=== PATIENT | male | born 1955 | race Caucasian/White ===

== ENCOUNTER 2021-01-13 22:36 | Inpatient (IN) | payer OTHER, SELFPAY ==
[2021-01-13 23:16] VITALS: BMI 30.9
[2021-01-14 00:27] VITALS: BMI 24.5
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
[2021-01-14] MEDS: traZODone HCL 50 MG TABLET PO (02:20)
[2021-01-14] MEDS: hydrOXYzine HCL 25 MG TABLET PO (02:20)
[2021-01-14 06:37] LABS: Glucose, Whole Blood 152 mg/dL (60-115)
[2021-01-14 08:30] LABS: MANUAL DIFF FLAG NO
[2021-01-14 08:33] LABS: Basophils Absolute Auto 0.1 X10*3/uL (0.0-0.2); Basophils Percent Auto 1.4 % (0-2); Eosinophils Absolute Auto 0.7 X10*3/uL (0.0-0.4); Eosinophils Percent Auto 8.6 % (0-4); Hemoglobin 12.4 g/dl (14.0-18.0); Imm Gran Abs Auto 0.02 X10*3/uL (0.00-0.03); Imm Gran Pct Auto 0.2 % (0.0-0.4); Lymphocytes Percent Auto 23.5 % (20-40); Mean Platelet Volume 9.8 fL (9.4-12.4); Monocytes Absolute Auto 0.7 X10*3/uL (0.1-1.2); Neutrophils Absolute Auto 4.9 X10*3/uL (2.0-8.3); Neutrophils Percent Auto 58.3 % (45-73); Platelet Count 402 X10*3/uL (160-400); Red Blood Count 5.63 X10*6/uL (4.60-5.80); Red Cell Distribution Width 16.8 % (11.0-16.0); White Blood Count 8.4 X10*3/uL (4.8-10.8)
[2021-01-14 08:49] LABS: Anion Gap 14 (12-20); Blood Urea Nitrogen 18 mg/dL (9-16); Calcium 9.9 mg/dL (8.4-10.2); Carbon Dioxide 27 mmol/L (22-29); Chloride 99 mmol/L (96-108); Creatinine Clr Calc Pharmacy 65.3; Estimated Glomerular Filt Rate > 60; Glucose Random 207 mg/dL (60-115); Potassium 4.3 mmol/L (3.3-5.1); Sodium 136 mmol/L (135-145)
[2021-01-14] MEDS: metFORMIN HCl 1,000 MG TABLET 1000 MG PO ×2 (08:55→16:55)
[2021-01-14] MEDS: Insulin Glargine,Hum.rec.anlog 100 UNIT/ML 10 ML VIAL 26 UNIT SUBCUT (08:59)
[2021-01-14 09:34] LABS: Alanine Aminotransferase 12 U/L (0-40); Albumin Level 4.1 g/dL (3.5-5.0); Alkaline Phosphatase 131 U/L (39-117); Anion Gap 14 (12-20); Aspartate Amino Transferase 22 U/L (5-37); Bilirubin Total 0.4 mg/dL (0.0-1.0); Blood Urea Nitrogen 18 mg/dL (9-16); Calcium 9.7 mg/dL (8.4-10.2); Carbon Dioxide 27 mmol/L (22-29); Chloride 100 mmol/L (96-108); Creatinine Clr Calc Pharmacy 67.3; Estimated Glomerular Filt Rate > 60; Glucose Fasting 207 mg/dL (60-99); Sodium 137 mmol/L (135-145); Total Protein 6.5 g/dL (6.5-8.0)
[2021-01-14 09:35] LABS: Alanine Aminotransferase 13 U/L (0-40); Albumin Level 4.2 g/dL (3.5-5.0); Alkaline Phosphatase 134 U/L (39-117); Aspartate Amino Transferase 22 U/L (5-37); Bilirubin Direct 0.2 mg/dL (0.0-0.5); Bilirubin Total 0.4 mg/dL (0.0-1.0); Total Protein 6.7 g/dL (6.5-8.0)
[2021-01-14 10:00] VITALS: BP 96/55; PULSE 100; RESP 16; TEMP 36.3; O2SAT 100
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
[2021-01-14 17:57] LABS: Glucose, Whole Blood 247 mg/dL (60-115)
[2021-01-14 18:00] VITALS: BP 120/71; PULSE 95; RESP 18; TEMP 36.7; O2SAT 98
[2021-01-14] MEDS: Insulin Lispro 100 UNIT/ML 3 ML VIAL SUBCUT (19:56)
[2021-01-14] MEDS: Mineral Oil/Petrolatum,White 106 GM Tube 1 APPL TOPICAL (20:08)
[2021-01-14] MEDS: QUEtiapine Fumarate 25 MG TABLET PO (20:10)
[2021-01-15 05:52] LABS: Glucose, Whole Blood 67 mg/dL (60-115)
[2021-01-15 06:12] LABS: Glucose, Whole Blood 127 mg/dL (60-115)
--- NOTE | 2021-01-15 09:00 | ECG_ITS ---
Test Reason : QTC CHECK Blood Pressure : / mmHG Vent. Rate : 090 BPM Atrial Rate : 090 BPM P-R Int : 146 ms QRS Dur : 082 ms QT Int : 364 ms P-R-T Axes : 064 055 054 degrees QTc Int : 445 ms Normal sinus rhythm Nonspecific T wave abnormality Abnormal ECG No previous ECGs available Referred By: Dia Kessler Electronically Signed By:GLENN WARREN
[2021-01-15 09:06] LABS: Estimated Average Glucose 329 mg/dL; Hemoglobin A1c % 13.1 %
[2021-01-15 09:19] LABS: Cholesterol 77 mg/dL; HDL Cholesterol 35 mg/dL; LDL Cholesterol Calculated 30 mg/dl; Triglycerides 64 mg/dL
[2021-01-15] MEDS: metFORMIN HCl 1,000 MG TABLET 1000 MG PO ×2 (09:20→17:23)
[2021-01-15] MEDS: Multivitamin TABLET 1 TAB PO (09:20)
[2021-01-15] MEDS: Insulin Glargine,Hum.rec.anlog 100 UNIT/ML 10 ML VIAL 26 UNIT SUBCUT (09:25)
[2021-01-15 09:29] VITALS: BP 143/86; PULSE 94; RESP 18; TEMP 36.4; O2SAT 97; BMI 25.7
[2021-01-15 09:30] LABS: Thyroid Stimulating Hormone 1.97 uIU/mL (0.32-4.0)
[2021-01-15 09:57] LABS: Folate 16.5 ng/mL (> or = 4.0); Vitamin B12 624 pg/mL (200-900)
[2021-01-15] MEDS: Gabapentin 300 MG CAPSULE PO ×2 (11:22→21:40)
[2021-01-15 11:33] LABS: Glucose, Whole Blood 271 mg/dL (60-115)
[2021-01-15] MEDS: Insulin Lispro 100 UNIT/ML 3 ML VIAL SUBCUT (11:56)
[2021-01-15] MEDS: Capsaicin 0.025% Cream 60 GM TUBE 1 APPL TOPICAL (12:16)
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
[2021-01-15 17:14] LABS: Glucose, Whole Blood 60 mg/dL (60-115)
[2021-01-15 18:00] VITALS: BP 119/78; PULSE 84; RESP 16; TEMP 36.1; O2SAT 99
[2021-01-15 21:03] LABS: Glucose, Whole Blood 75 mg/dL (60-115)
[2021-01-15] MEDS: QUEtiapine Fumarate 50 MG TABLET PO (21:40)
--- NOTE | 2021-01-15 22:31 | PC.NURSE ---
Pt upset upon arrival on shift. Pt upset about medications. This senior grant writer spoke to pts nurse and mentioned that it is best the chain dyer be called to explain the situation. Dr. Colton May came on to the unit to do a history and physical on the pt. Yadira had a shell molding roller blast operator with her. The chain dyer was able to explain all the pts medications and pt concerns. Pt was still upset and frustrated. Pt was made aware that he could speak with the human rights officer and put in a complaint for any concerns.
[2021-01-16] MEDS: Capsaicin 0.025% Cream 60 GM TUBE 1 APPL TOPICAL (03:47)
--- NOTE | 2021-01-16 05:18 | P.HPHOSP_ITS ---
History of Present Illness Date of Service: 01/15/21 Chief Complaint: Admission H&P 65-year-old male with past medical history of opioid use disorder as well as schizoaffective disorder admitted to [facility] for bipolar and schizoaffective disorder. We are asked to see this patient for admission H&P I interviewed the patient with the help of science interpreter. Patient at this time denies any chest pain, no abdominal pain, no nausea or vomiting, no diarrhea or constipation, no urinary symptoms and no lower extremi ty edema. Patient reports that he has history of chronic neuropathy, he is upset that the nurse did not give him his neuropathy ointment as was scheduled for him outpatient which he was receiving q.i.d. but he was getting it t.i.d. at the [facility] and the of the exiting to him, patient kept talking nonstop, has flight of ideas, very talkative and very hard to redirect. [facility] Medical History (Updated 01/14/21 @ 17:35 by Dia Kessler, RJ) Opioid use disorder Schizoaffective disorder, bipolar type Social History Household Members: Spouse Housing: Apartment Do you presently have visiting nurse or other home services: Yes Patient Tobacco Use Status: Never used Tobacco Currently Displaying Signs/Symptoms of Drug Intoxication Withdrawal: No Advance Directives: No Advance Directives Information Provided: Yes Do you have thoughts of harming others: None Do you have a plan to hurt others: No Plan service: Yes (Patient reports being in [employer], but service unable to be confirmed.) Sexual orientation: Straight/Heterosexual Meds Allergies Allergy/AdvReac Type Severity Reaction Status Date / Time Unable to Assess Allergy Verified 01/13/21 23:19 Active Medications: Current Medications Acetaminophen (Acetaminophen 325 Mg Tablet) 650 mg PO Q6H PRN PRN Reason: Headache/Pain Mild Scale (1-3) Al Hydroxide/Mg Hydroxide (Magnesium Hydrox/Alum Hydrox 30 Ml Oral.Susp) 30 ml PO Q6H PRN PRN Reason: Heartburn/Nausea Capsaicin (Capsaicin 0.025% Cream 60 Gm Tube) 1 appl TOPICAL QID PRN PRN Reason: neuropathic pain Last Admin: 01/16/21 03:47 Dose: 1 appl Documented by: Dextrose (Dextrose 50 % 25 Gm/50 Ml Vial) 25 gm IVPUSH Q15M PRN; Protocol PRN Reason: per Hypoglycemia Standing Ord. Gabapentin (Gabapentin 300 Mg Capsule) 300 mg PO BID [facility] Last Admin: 01/15/21 21:40 Dose: 300 mg Documented by: Glucose (Glucose Gel 15 Gm Gel..Gram.) 15 gm PO Q15M PRN; Protocol PRN Reason: per Hypoglycemia Standing Ord. Hydroxyzine HCl (Hydroxyzine Hcl 25 Mg Tablet) 25 mg PO BEDTIME PRN PRN Reason: Anxiety Last Admin: 01/14/21 02:20 Dose: 25 mg Documented by: Insulin Glargine (Insulin Glargine,Hum.Rec.Anlog 100 Unit/Ml 10 Ml Vial) 26 unit SUBCUT DAILY [facility] Last Admin: 01/15/21 09:25 Dose: 1 unit Documented by: Insulin Human Lispro (Insulin Lispro 100 Unit/Ml 3 Ml Vial) 0 unit SUBCUT QIDACHS [facility]; Protocol Last Admin: 01/15/21 21:19 Dose: Not Given Documented by: Lidocaine (Lidocaine 4 % Patch Adh..Patch) 2 patch TRANSDERMA DAILY PRN; Protocol PRN Reason: pain Magnesium Hydroxide (Milk Of Magnesia 30 Ml Oral.Susp) 30 ml PO DAILY PRN PRN Reason: Constipation Metformin HCl (Metformin Hcl 1,000 Mg Tablet) 1,000 mg PO BIDWM [facility] Last Admin: 01/15/21 17:23 Dose: 1,000 mg Documented by: Multi-Ingred Cream/Lotion/Oil/Oint (Mineral Oil/Petrolatum,White 106 Gm Tube) 1 appl TOPICAL TID [facility] Last Admin: 01/15/21 21:56 Dose: Not Given Documented by: Multivitamins/Vitamin C (Multivitamin Tablet) 1 tab PO DAILY [facility] Last Admin: 01/15/21 09:20 Dose: 1 tab Documented by: Quetiapine Fumarate (Quetiapine Fumarate 25 Mg Tablet) 25 mg PO BID PRN PRN Reason: Psychosis Quetiapine Fumarate (Quetiapine Fumarate 50 Mg Tablet) 50 mg PO BEDTIME [facility] Last Admin: 01/15/21 21:40 Dose: 50 mg Documented by: Trazodone HCl (Trazodone Hcl 50 Mg Tablet) 50 mg PO BEDTIME PRN PRN Reason: Insomnia Last Admin: 01/14/21 02:20 Dose: 50 mg Documented by: Trolamine Salicylate/Aloe Vera (Trolamine Salicylate 10%/Aloe Cream 35.4 Gm) 1 appl TOPICAL QID PRN; Protocol PRN Reason: pain,neck,back Last Admin: 01/15/21 06:17 Dose: 1 appl Documented by: Physical Exam Vital Signs and Narrative: Vital Signs: Last Vital Signs Temp 97 F 01/15/21 18:00 Pulse 84 01/15/21 18:00 Resp 16 01/15/21 18:00 BP 119/78 01/15/21 18:00 Pulse Ox 99 01/15/21 18:00 Body Mass Index 25.7 Results Labs CBC and Chem 7: 01/14/21 07:55 01/14/21 07:55 Labs: Laboratory Results - last 24 hr 01/15/21 01/15/21 01/15/21 01:32 06:09 08:01 POC Glucose 67 127 H Estimat Average Glucose Hemoglobin A1c % Triglycerides 64 Cholesterol 77 LDL Cholesterol, Calc 30 HDL Cholesterol 35 Vitamin B12 Folate TSH 01/15/21 01/15/21 01/15/21 08:01 08:01 08:01 POC Glucose Estimat Average Glucose 329 Hemoglobin A1c % 13.1 Triglycerides Cholesterol LDL Cholesterol, Calc HDL Cholesterol Vitamin B12 624 Folate 16.5 TSH 1.97 01/15/21 01/15/21 01/15/21 11:27 17:11 20:57 POC Glucose 271 H 60 75 Estimat Average Glucose Hemoglobin A1c % Triglycerides Cholesterol LDL Cholesterol, Calc HDL Cholesterol Vitamin B12 Folate TSH
--- NOTE | 2021-01-16 06:48 | HO.HSGERICON ---
History of Present Illness Data of Consult Service Date: 01/16/21 Primary Care Provider: Unknown Physician HPI 65-year-old male with past medical history of opioid use disorder as well as schizoaffective disorder admitted to [facility] for bipolar and schizoaffective disorder. We are asked to see this patient for admission H&P I interviewed the patient with the help of scrap iron loader. Patient at this time denies any chest pain, no abdominal pain, no nausea or vomiting, no diarrhea or constipation, no urinary symptoms and no lower extremity edema. Patient reports that he has history of chronic neuropathy, he is upset that the nurse did not give him his neuropathy ointment as was scheduled for him outpatient which he was receiving q.i.d. but he was getting it t.i.d. at the [facility] and the of the exiting to him, patient kept talking nonstop, has flight of ideas, very talkative and very hard to redirect. Vitals reviewed, remarkable Labs reviewed all unremarkable Review of Systems Review of Systems: Yes all other systems are reviewed and are negative [facility] Medical History Opioid use disorder Schizoaffective disorder, bipolar type Pertinent family history: No pertinent family history Surgical History (Updated 01/16/21 @ 06:48 by Benita May MD) No significant past surgical history Social History Household Members: Spouse Housing: Apartment Do you presently have visiting nurse or other home services: Yes Patient Tobacco Use Status: Never used Tobacco Currently Displaying Signs/Symptoms of Drug Intoxication Withdrawal: No Advance Directives: No Advance Directives Information Provided: Yes Do you have thoughts of harming others: None Do you have a plan to hurt others: No Plan service: Yes (Patient reports being in [employer], but service unable to be confirmed.) Sexual orientation: Straight/Heterosexual Meds Allergies Allergy/AdvReac Type Severity Reaction Status Date / Time Unable to Assess Allergy Verified 01/13/21 23:19 Active Medications: Current Medications Acetaminophen (Acetaminophen 325 Mg Tablet) 650 mg PO Q6H PRN PRN Reason: Headache/Pain Mild Scale (1-3) Al Hydroxide/Mg Hydroxide (Magnesium Hydrox/Alum Hydrox 30 Ml Oral.Susp) 30 ml PO Q6H PRN PRN Reason: Heartburn/Nausea Capsaicin (Capsaicin 0.025% Cream 60 Gm Tube) 1 appl TOPICAL QID PRN PRN Reason: neuropathic pain Last Admin: 01/16/21 03:47 Dose: 1 appl Documented by: Dextrose (Dextrose 50 % 25 Gm/50 Ml Vial) 25 gm IVPUSH Q15M PRN; Protocol PRN Reason: per Hypoglycemia Standing Ord. Gabapentin (Gabapentin 300 Mg Capsule) 300 mg PO BID [facility] Last Admin: 01/15/21 21:40 Dose: 300 mg Documented by: Glucose (Glucose Gel 15 Gm Gel..Gram.) 15 gm PO Q15M PRN; Protocol PRN Reason: per Hypoglycemia Standing Ord. Hydroxyzine HCl (Hydroxyzine Hcl 25 Mg Tablet) 25 mg PO BEDTIME PRN PRN Reason: Anxiety Last Admin: 01/14/21 02:20 Dose: 25 mg Documented by: Insulin Glargine (Insulin Glargine,Hum.Rec.Anlog 100 Unit/Ml 10 Ml Vial) 26 unit SUBCUT DAILY [facility] Last Admin: 01/15/21 09:25 Dose: 1 unit Documented by: Insulin Human Lispro (Insulin Lispro 100 Unit/Ml 3 Ml Vial) 0 unit SUBCUT QIDACHS [facility]; Protocol Last Admin: 01/15/21 21:19 Dose: Not Given Documented by: Lidocaine (Lidocaine 4 % Patch Adh..Patch) 2 patch TRANSDERMA DAILY PRN; Protocol PRN Reason: pain Magnesium Hydroxide (Milk Of Magnesia 30 Ml Oral.Susp) 30 ml PO DAILY PRN PRN Reason: Constipation Metformin HCl (Metformin Hcl 1,000 Mg Tablet) 1,000 mg PO BIDWM [facility] Last Admin: 01/15/21 17:23 Dose: 1,000 mg Documented by: Multi-Ingred Cream/Lotion/Oil/Oint (Mineral Oil/Petrolatum,White 106 Gm Tube) 1 appl TOPICAL TID [facility] Last Admin: 01/15/21 21:56 Dose: Not Given Documented by: Multivitamins/Vitamin C (Multivitamin Tablet) 1 tab PO DAILY [facility] Last Admin: 01/15/21 09:20 Dose: 1 tab Documented by: Quetiapine Fumarate (Quetiapine Fumarate 25 Mg Tablet) 25 mg PO BID PRN PRN Reason: Psychosis Quetiapine Fumarate (Quetiapine Fumarate 50 Mg Tablet) 50 mg PO BEDTIME [facility] Last Admin: 01/15/21 21:40 Dose: 50 mg Documented by: Trazodone HCl (Trazodone Hcl 50 Mg Tablet) 50 mg PO BEDTIME PRN PRN Reason: Insomnia Last Admin: 01/14/21 02:20 Dose: 50 mg Documented by: Trolamine Salicylate/Aloe Vera (Trolamine Salicylate 10%/Aloe Cream 35.4 Gm) 1 appl TOPICAL QID PRN; Protocol PRN Reason: pain,neck,back Last Admin: 01/15/21 06:17 Dose: 1 appl Documented by: Results Labs CBC and Chem 7: 01/14/21 07:55 01/14/21 07:55 Labs: Laboratory Results - last 24 hr 01/15/21 01/15/21 01/15/21 08:01 08:01 08:01 POC Glucose Estimat Average Glucose 329 Hemoglobin A1c % 13.1 Triglycerides 64 Cholesterol 77 LDL Cholesterol, Calc 30 HDL Cholesterol 35 Vitamin B12 624 Folate 16.5 TSH 01/15/21 01/15/21 01/15/21 08:01 11:27 17:11 POC Glucose 271 H 60 Estimat Average Glucose Hemoglobin A1c % Triglycerides Cholesterol LDL Cholesterol, Calc HDL Cholesterol Vitamin B12 Folate TSH 1.97 01/15/21 20:57 POC Glucose 75 Estimat Average Glucose Hemoglobin A1c % Triglycerides Cholesterol LDL Cholesterol, Calc HDL Cholesterol Vitamin B12 Folate TSH Assessment and Plan (1) Schizoaffective disorder, bipolar type: Status: Acute 65-year-old male admitted to [facility] for management of schizoaffective disorder we are consulted for admission H&P At this time patient does not have any acute complaints and will refer management of his schizoaffective disorder to [facility] staff Thank you for this consult Physical Exam Vital Signs: Last Vital Signs Temp 97 F 01/15/21 18:00 Pulse 84 01/15/21 18:00 Resp 16 01/15/21 18:00 BP 119/78 01/15/21 18:00 Pulse Ox 99 01/15/21 18:00 Body Mass Index 25.7 Const General: cooperative and no acute distress Orientation/consciousness: patient oriented x3 Eyes General: appearance normal, both eyes and all related structures Resp Effort & Inspection: normal respiratory effort Cardio Rate: regular rate Rhythm: regular rhythm GI Palpation (GI): Soft to palpation Auscultation: normal bowel sounds Skin General skin exam: no rashes or lesions noted Neuro General: patient oriented x3 Cranial nerves: Yes CN's II-XII intact bilaterally Extrem General: Yes normal to inspection and Yes no pedal edema
[2021-01-16 07:07] LABS: Glucose, Whole Blood 73 mg/dL (60-115)
[2021-01-16] MEDS: Insulin Glargine,Hum.rec.anlog 100 UNIT/ML 10 ML VIAL 26 UNIT SUBCUT (08:41)
[2021-01-16] MEDS: Multivitamin TABLET 1 TAB PO (08:41)
[2021-01-16] MEDS: metFORMIN HCl 1,000 MG TABLET 1000 MG PO (08:41)
[2021-01-16] MEDS: Gabapentin 300 MG CAPSULE PO (08:41)
[2021-01-16 11:46] LABS: Glucose, Whole Blood 229 mg/dL (60-115)
[2021-01-16] MEDS: Insulin Lispro 100 UNIT/ML 3 ML VIAL SUBCUT (12:22)
--- NOTE | 2021-01-16 14:18 | P.DS_ITS ---
DS: Providers Provider Date of Service: 01/16/21 Date of admission: 01/13/21 22:36 Date of discharge: 01/16/21 Primary care physician: Unknown Physician Admitting clinician: Dia Kessler Attending physician on admission: Jesus Wrgiht Consults: 01/14/21 17:25 Consult to Hospitalist Routine Consulting Provider: Hospitalist Reason For Exam: Transfer admit from [facility] 01/15/21 10:59 Consult to Hospitalist Routine Consulting Provider: Hospitalist Reason For Exam: foot pain, severe ?peripheral neuropathy Attending physician on discharge: Jesus Wright Discharging clinician: Dia Kessler DS: Diagnosis Discharge Diagnosis (1) Schizoaffective disorder, bipolar type: Status: Acute DS: Medications Discharge Medications Home Medications: Previous Rx's Medication Instructions Recorded capsaicin 0.025 % topical cream 1 appl TOPICAL QID PRN #1 g 01/16/21 gabapentin 300 mg capsule 300 mg PO BID #60 cap 01/16/21 insulin glargine 100 unit/mL 26 unit SUBCUT DAILY #0 ml 01/16/21 subcutaneous solution (Lantus U-100 Insulin) metformin 1,000 mg tablet 1,000 mg PO BIDWM #0 tab 01/16/21 multivitamin (Daily-Esthela) 1 tab PO DAILY #30 tab 01/16/21 quetiapine 50 mg tablet 50 mg PO BEDTIME #30 tab 01/16/21 white petrolatum-mineral oil 1 appl TOPICAL TID #0 g 01/16/21 topical cream (Dermacerin) Mental Status Exam Mental Status Exam Patient Appearance: Appropriate Patient Orientation: Person, Place, Time and Situation Level of Consciousness: Alert Patient Behavior: Appropriate, Talkative, Cooperative and Good Eye Contact Mood Description: Anxious and Apprehensive Affect Description: Anxious and Apprehensive Patient Cognition Impaired: No Ability to Follow Directions: Good Speech Pattern: Spontaneous Speech Memory Description: Remote Impaired and Episodic Impaired Hallucinations: None Delusions: Present Perceptual Disturbances: Derealization Thought Process: Illogical and Distracted Thought Content: positive for Flight of Ideas, positive for Circumstantial, positive for Loose Associations, positive for Tangential, positive for Disorganized, positive for Suicidal Ideation (denies) and positive for Homicidal Ideation (denies) Depressive Symptoms: Increased Anxiety, Insomnia, Difficulty Sleeping, Difficulty Concentrating and Back Pain Abnormal Motor Activity Signs and Symptoms: Restlessness Judgement: Fair Data Data Completed and Pending Completed studies during hospitalization [Text1]: 01/14/21 01/14/21 01/14/21 06:32 07:55 07:55 WBC 8.4 RBC 5.63 Hgb 12.4 L Hct 40.0 L MCV 71.0 L MCH 22.0 L MCHC 31.0 RDW 16.8 H Plt Count 402 H MPV 9.8 Immature Gran % (Auto) 0.2 Neut % (Auto) 58.3 Lymph % (Auto) 23.5 [place] % (Auto) 8.0 Eos % (Auto) 8.6 H Baso % (Auto) 1.4 Lymph # (Auto) 2.0 [place] # (Auto) 0.7 Eos # (Auto) 0.7 H Baso # (Auto) 0.1 Abs Immat Gran (auto) 0.02 Absolute Neuts (auto) 4.9 Absolute Nucleated RBC 0.000 Nucleated RBC % (auto) 0.0 Sodium 137 Potassium 4.0 Chloride 100 Carbon Dioxide 27 Anion Gap 14 BUN 18 H Creatinine 1.00 Estim Creat Clear Calc 67.3 Estimated GFR > 60 POC Glucose 152 H Random Glucose Fasting Glucose 207 H Estimat Average Glucose Hemoglobin A1c % Calcium 9.7 Total Bilirubin 0.4 Direct Bilirubin AST 22 ALT 12 Alkaline Phosphatase 131 H Total Protein 6.5 Albumin 4.1 Triglycerides Cholesterol LDL Cholesterol, Calc HDL Cholesterol Vitamin B12 Folate TSH 01/14/21 01/14/21 01/14/21 07:55 07:55 16:48 WBC RBC Hgb Hct MCV MCH MCHC RDW Plt Count MPV Immature Gran % (Auto) Neut % (Auto) Lymph % (Auto) [place] % (Auto) Eos % (Auto) Baso % (Auto) Lymph # (Auto) [place] # (Auto) Eos # (Auto) Baso # (Auto) Abs Immat Gran (auto) Absolute Neuts (auto) Absolute Nucleated RBC Nucleated RBC % (auto) Sodium 136 Potassium 4.3 Chloride 99 Carbon Dioxide 27 Anion Gap 14 BUN 18 H Creatinine 1.03 Estim Creat Clear Calc 65.3 Estimated GFR > 60 POC Glucose 247 H Random Glucose 207 H Fasting Glucose Estimat Average Glucose Hemoglobin A1c % Calcium 9.9 Total Bilirubin 0.4 Direct Bilirubin 0.2 AST 22 ALT 13 Alkaline Phosphatase 134 H Total Protein 6.7 Albumin 4.2 Triglycerides Cholesterol LDL Cholesterol, Calc HDL Cholesterol Vitamin B12 Folate TSH 01/15/21 01/15/21 01/15/21 01:32 06:09 08:01 WBC RBC Hgb Hct MCV MCH MCHC RDW Plt Count MPV Immature Gran % (Auto) Neut % (Auto) Lymph % (Auto) [place] % (Auto) Eos % (Auto) Baso % (Auto) Lymph # (Auto) [place] # (Auto) Eos # (Auto) Baso # (Auto) Abs Immat Gran (auto) Absolute Neuts (auto) Absolute Nucleated RBC Nucleated RBC % (auto) Sodium Potassium Chloride Carbon Dioxide Anion Gap BUN Creatinine Estim Creat Clear Calc Estimated GFR POC Glucose 67 127 H Random Glucose Fasting Glucose Estimat Average Glucose Hemoglobin A1c % Calcium Total Bilirubin Direct Bilirubin AST ALT Alkaline Phosphatase Total Protein Albumin Triglycerides 64 Cholesterol 77 LDL Cholesterol, Calc 30 HDL Cholesterol 35 Vitamin B12 Folate TSH 01/15/21 01/15/21 01/15/21 08:01 08:01 08:01 WBC RBC Hgb Hct MCV MCH MCHC RDW Plt Count MPV Immature Gran % (Auto) Neut % (Auto) Lymph % (Auto) [place] % (Auto) Eos % (Auto) Baso % (Auto) Lymph # (Auto) [place] # (Auto) Eos # (Auto) Baso # (Auto) Abs Immat Gran (auto) Absolute Neuts (auto) Absolute Nucleated RBC Nucleated RBC % (auto) Sodium Potassium Chloride Carbon Dioxide Anion Gap BUN Creatinine Estim Creat Clear Calc Estimated GFR POC Glucose Random Glucose Fasting Glucose Estimat Average Glucose 329 Hemoglobin A1c % 13.1 Calcium Total Bilirubin Direct Bilirubin AST ALT Alkaline Phosphatase Total Protein Albumin Triglycerides Cholesterol LDL Cholesterol, Calc HDL Cholesterol Vitamin B12 624 Folate 16.5 TSH 1.97 01/15/21 01/15/21 01/15/21 11:27 17:11 20:57 WBC RBC Hgb Hct MCV MCH MCHC RDW Plt Count MPV Immature Gran % (Auto) Neut % (Auto) Lymph % (Auto) [place] % (Auto) Eos % (Auto) Baso % (Auto) Lymph # (Auto) [place] # (Auto) Eos # (Auto) Baso # (Auto) Abs Immat Gran (auto) Absolute Neuts (auto) Absolute Nucleated RBC Nucleated RBC % (auto) Sodium Potassium Chloride Carbon Dioxide Anion Gap BUN Creatinine Estim Creat Clear Calc Estimated GFR POC Glucose 271 H 60 75 Random Glucose Fasting Glucose Estimat Average Glucose Hemoglobin A1c % Calcium Total Bilirubin Direct Bilirubin AST ALT Alkaline Phosphatase Total Protein Albumin Triglycerides Cholesterol LDL Cholesterol, Calc HDL Cholesterol Vitamin B12 Folate TSH 01/16/21 01/16/21 07:03 11:43 WBC RBC Hgb Hct MCV MCH MCHC RDW Plt Count MPV Immature Gran % (Auto) Neut % (Auto) Lymph % (Auto) [place] % (Auto) Eos % (Auto) Baso % (Auto) Lymph # (Auto) [place] # (Auto) Eos # (Auto) Baso # (Auto) Abs Immat Gran (auto) Absolute Neuts (auto) Absolute Nucleated RBC Nucleated RBC % (auto) Sodium Potassium Chloride Carbon Dioxide Anion Gap BUN Creatinine Estim Creat Clear Calc Estimated GFR POC Glucose 73 229 H Random Glucose Fasting Glucose Estimat Average Glucose Hemoglobin A1c % Calcium Total Bilirubin Direct Bilirubin AST ALT Alkaline Phosphatase Total Protein Albumin Triglycerides Cholesterol LDL Cholesterol, Calc HDL Cholesterol Vitamin B12 Folate TSH DS: Summary Hospital Course Hospital Course: Pt signed in on a conditional voluntary. Soon after he arrived he decided that the focus of his care should be medical, concentrating on peripheral neuropathy. He requested discharge. The social service and nursing teams were able to clarify some of the precipitating factors which led to admission with pts' shakeel raymundo, and they were in agreement that he should be allowed to discharge, continue with his out patient care, and focus on his peripheral neuropathic pain with his primary care team. Time spent discussing smoking cessation with patient: 3 to 10 minutes Status at Discharge Cognitive/behavioral status at discharge: non-suicidal, non-psychotic Functional status at discharge: independent ambulation Overall status at discharge: patient is progressing back to baseline Time Spent with Patient Time attestation: Total time spent providing and/or coordinating discharge services: 35 Time spent: Greater than 30 minutes Discharge Plan Discharge Anticipated Discharge Date/Time: 01/16/21 14:00 Patient Disposition: Home, Self-Care Discharge Diagnosis: Schizoaffective disorder, bipolar type Referrals: Alok Carrasco Visiting RN [Other] - 01/16/21 Tracey Weathers NP (psychiatry) [Other] - 01/19/21 9:00 am (Psychiatry Appointment with new provider ) Florina Jones (therapist) [Other] - 01/21/21 10:00 am (Assigned Therapist at [facility] Appointment in Person ) Loco Barker MD [Physician] - (DR office will call you to schedule appointment. ) Discharge Medications: New gabapentin 300 mg Capsule 300 mg PO BID Qty: 60 RF: 0 multivitamin [Daily-Esthela] Tablet 1 tab PO DAILY Qty: 30 RF: 0 Lantus U-100 Insulin 100 unit/mL Solution 26 unit subcut DAILY Qty: 0 RF: 0 metformin 1,000 mg Tablet 1,000 mg PO BIDWM Qty: 0 RF: 0 capsaicin 0.025 % Cream 1 appl topical QID PRN (Reason: neuropathic pain) Qty: 1 RF: 0 Dermacerin Cream 1 appl topical TID Qty: 0 RF: 0 quetiapine 50 mg Tablet 50 mg PO BEDTIME Qty: 30 RF: 0 Discharge Orders: Discharge Order (Routine); Ordered 01/16/21 Ordered By: Dia Kessler Diet: diabetic diet Activity on Discharge: As tolerated Stand Alone Forms: Patient Portal Discharge page, Community Support Care Plan Goals: Mood stabilization Health Concerns: Schizoaffective Disorder, bipolar type Diabetes Plan of Treatment: Attend follow up appointments Take medications as directed Work with [facility] on medications and health promotion goals. Assessment: Alert, oriented, non-suicidal, non-homicidal, non-psychotic, no symptoms of brad. Pt is not wanting to continue with in pt care. He prefers to attend treatment as an outpatient He is focused on his peripheral neuropathic pain which has existed he reports fo r a long period of time and wants to pursue primary treatment for this condition. Current interventions he reports are not enough for his approval at this time. Patient Instructions: Gabapentin (By mouth), Capsaicin (On the skin), Quetiapine (By mouth) Discharge Date/Time: 01/16/21 14:00
== END 2021-01-16 14:00 | disposition home or self-care (01) | DRG 750 ==
PROVIDERS: Psychiatry & Neurology Psychiatry; Admitting Provider Psychiatry & Neurology Psychiatry; Visit Provider Clinical Nurse Specialist Psychiatric/Mental Health, Adult
DX: F25.0 Schizoaffective disorder, bipolar type (principal); E11.42 Type 2 diabetes mellitus with diabetic polyneuropathy; Z79.4 Long term (current) use of insulin; Z79.899 Other long term (current) drug therapy
CPT/HCPCS: 36415; 80048; 80053; 80061; 80076; 82607; 82746; 82947; 83036; 84443; 85025; 93005